=== PATIENT | female | born 2000 | race Caucasian/White ===

== ENCOUNTER 2023-03-05 13:27 | Outpatient (CLI) | payer OTHER, SELFPAY ==
--- NOTE | ~2023-03-05 | XR_ITS ---
EXAMINATION: XR hip RT min 2V DATE: 03/05/2023 13:52 INDICATION: Right hip pain. TECHNIQUE: 2 views of right hip were obtained. COMPARISON: None. FINDINGS: Bone alignment is normal. No fracture. There is decreased femoral head/neck offset, which m ay be seen with femoral acetabular impingement. Right hip joint space is normal. IMPRESSION: 1. No arthritis. Reviewed, dictated and finalized at location E. IMPRESSION: 1. No arthritis.
== END 2023-03-05 13:28 | disposition home or self-care (01) ==
LOC: CHSIMG 13:35
PROVIDERS: PCP Family Medicine; Visit Provider Family Medicine
DX: M25.551 Pain in right hip (principal)
CPT/HCPCS: 73502

== ENCOUNTER 2023-09-12 10:50 | Outpatient (CLI) | payer OTHER, SELFPAY ==
--- NOTE | ~2023-09-12 | XR_ITS ---
EXAMINATION: XR chest 2V 09/12/2023 11:01 INDICATION: Right-sided chest and rib pain PROCEDURE: 2 view chest COMPARISON: 09/25/2007 FINDINGS: The lungs are clear. The cardiomediastinal silhouette is within normal limits. There are no pleural effusions. There is no pneumothorax suspected. IMPRESSION: 1: NO ACUTE CARDIOPULMONARY DISEASE. Reviewed, dictated and finalized at location B.
== END 2023-09-12 10:51 | disposition home or self-care (01) ==
LOC: CHSIMG 10:51
PROVIDERS: PCP Family Medicine; Visit Provider Nurse Practitioner Family
DX: R07.81 Pleurodynia (principal)
CPT/HCPCS: 71046

== ENCOUNTER 2024-09-09 13:02 | Outpatient (CLI) | payer OTHER, SELFPAY ==
--- NOTE | ~2024-09-09 | XR_ITS ---
EXAMINATION: XR barium swallow DATE: 09/09/2024 14:16 INDICATION: Reflux symptoms and vomiting TECHNIQUE: The patient drank thick barium, gas-producing crystals, and thin barium. A total of 1215 f luoroscopic spot radiographs of the hypopharynx and esophagus were obtained. Fluoroscopy exposure ti me was 1.7 minutes. Total DAP was 3.105 Gycm^2. COMPARISON: None. FINDINGS: The pharynx is symmetric and without evidence of mass lesion or mucosal irregularity. The e sophagus is normal without mass or stricture. Esophageal motility is normal. There is no hiatal herni a. There was no gastroesophageal reflux with provocative maneuvers. IMPRESSION: 1. Normal barium swallow study. Reviewed, dictated and finalized at location A.
--- OUTSIDE RECORDS SUMMARY | 2024-09-09 14:13 | XMS_ITS | Clinical Summary ---
Author Organization [facility] Address [address] [place] [address] Care Team Providers Care Systems Mgr Name Role Phone Agnieszka Butler MD Primary Care Provider [phone] Source Comments [facility],non-owned Affiliates and Associated Physician Practices is amultiple site organization consisting of ambulatory clinics and hospital sitesin [place], [place] and [place]. This disclosure is being madepursuant to the Care Everywhere program and may not contain all information available regarding this patient. Last updated 18.[facility] Allergies No known active allergies Medications * Be aware that medications may not be up to date on this document. Alwaysverify current medications with the patient. omeprazole (PriLOSEC) 40 MG capsule TAKE 1 CAPSULE BY MOUTH EVERY DAY BEFORE A MEAL Active escitalopram (Lexapro) 20 MG tablet Take 1 (one) tablet by mouth once daily Active norgestimate-ethin yl estradiol (Lisbeth) 0.25-35 MG-MCG tabletIndications: Oral contraceptive use Take 1 (one) tablet by mouth once daily 3 packet 3 4 Active Active Problems Problem Noted Date Diagnosed Date Nausea and vomiting 04/11/2020 Abdominal pain, generalized 04/11/2020 Immunizations Immunization Administration Dates Next Due DTaP VACCINE IM (6wk-6yrs) 01/30/2011,,04/03/2004,12/31,2002,2002 HEP A VACCINE, ADULT 11/17/2018 HEP B VACCINE, ADULT 3 DOSE 07/14/2003, 3,2002 HEP B VACCINE, PED/ADOL 07/14/2003,2002, HIB Hep B 07/14/2003,2002,2002 HIB VACCINE 07/14/2003,2002,2002 HIB-HAEMOPHILUS INFLUENZAE B CONJUGATE VACCINE 2002 HIB-PRP-T 4 DOSE 07/14/2003,2002, 3 Human Papilloma Virus Nineva lent Vaccine 12/16/2016,12/12/2014 INFLUENZA VACCINE 05/23/2003,04/11/2003 MENINGOCOCAL MENINGITIS 12/17/2013 MENINGOCOCCAL ACWY (MCV4P) VAC IM 11/17/2018,05/2013 MMR 07/15/2006,07/14/2003 PNEUMOCOCCAL PCV7 CONJ, PEDS 04/03/2004, 2002,2002,09/30,2002 POLIO IPV 01/30/2011, 7,04/03/2004,07/14,2002,2002 TDAP (7yrs+) 12/17/2013 VARICELLA 07/15/2006,07/14/2003 Family History Medical History Relation Name Comments Depression Father Hypertension Father Polycystic Ovary Syndrome Mother Relation Name Status Comments Father Alive Mother Alive Social History Tobacco Use Types Packs/Day Years Used Date Smoking Tobacco: Never Smokeless Tobacco: Never Tobacco Cessation:Counseling Given: Not Answered Alcohol Use Standard Drinks/Week Comments No 0 (1 standard drink = 0.6 oz pur e alcohol) Comments No Sex and Gender Information Value Date Recorded Sex Assigned at Not on file 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 Gender Identity Not on file Sexual Orientation Not on file Last Filed Vital Signs Vital Sign Reading Time Taken Comments Blood Pressure 110/73 01/14/2024 10:03 AM CDT Pulse 75 01/14/2024 10:03 AM CDT Temperature 36.4 C (97.5 F) 03/17/2020 1:51 PM CDT Respiratory Rate 18 12/18/2019 10:44 PM CDT Oxygen Saturation 98% 03/17/2020 1:51 PM CDT Inhaled Oxygen Concentration - - Weight 59 kg (130 lb) 01/14/2024 10:03 AM CDT Height 170.2 cm (5' 7 ) 01/14/2024 10:03 AM CDT Body Mass Index 20.36 01/14/2024 10:03 AM CDT Plan of Treatment Upcoming Encounters Date Type Department Care Team (Late st Contact Info) Description 01/19/2025 10:00 AM CDT Office Visit [facility] [address] [address] Aubrie Nelson MD [address] [place] [address] Health Maintenance Due Date Last Done Comments HIV SCREENING 2017 MENINGOCOCCAL (Group B) VACCINE SHARED DECISION-MAKING (1 of 2 - Standard) 2018 HEPATITIS C SCREENING 07/06/2020 DTAP/TDAP/TD VACCINES (7 - Td or Tdap) 12/18/2023 12/17/2013, 01/30/2011, 07/15/2006, Additional history exists COVID-19 VACCINE ( season) 2024 12/05/2020, 11/14/2020 DEPRESSION SCREENING 05/19/2024 CHLAMYDIA/GONORRHEA SCREENING 01/13/2025 01/14/2024, 01/14/2024, 10/26/2019 INFLUENZA VACCINE (Season Ended) 2025 05/23/2003, 04/11/2003 PAP SMEAR 01/13/2027 01/14/2024, 01/14/2024 ZOSTER VACCINE (1 of 2) 2052 HEPATITIS B VACCINE Completed 07/14/2003, 07/14/2003, 07/14/2003, Additional history exists HIB VACCINE Completed 07/14/2003, 06/20, 07/14/2003, Additional history exists PNEUMOCOCCAL VACCINE Completed 04/03/2004, 2002, 2002, Additional history exists HPV VACCINE Completed 12/16/2016, 12/12/2014 MENINGOCOCCAL GROUPS A/C/Y/W VACCINE Aged Out 11/17/2018, 12/17/2013, 12/17/2013 No longer eligible based on patient's age to complete this topic Procedures Procedure Name Priority Date/Time Associated Diagnosis Comments PAP CERVICAL CANCER SCREEN CT/NG/TV APT Routine 01/14/2024 11:06 AM CDT Well woman exam with routine gynecological exam from Last 3 Months or Most Recently Relevant to Health Maintenance Results * PAP CERVICAL CANCER SCREEN CT/NG/TV APT (01/14/2024 11:06 AM CDT) Age Gdln ACOG Testing 21-29 [facility] INSURANCE BILL PART OF UTERINE CERVIX / Unknown 01/14/2024 11:06 AM CDT 01/14/2024 Narrative [facility] INSURANCE BILL - 01/20/2024 1:08 PM CDT Source.............Cervix No. of containers..01 ThinPrep Vial Resulting Agency Comment Lab Testing performed at: [address] [id number] Aubrie Nelson MD LAB - PATHOLOGY/CYTOLOGY [place] Final Result [facility] INSURANCE BILL [address] [place] [address] from Last 3 Months or Most Recently Relevant to Health Maintenance Insurance [facility] Care Teams Systems Mgr Relationship Specialty Start Date End Date Agnieszka Butler MD PCP - General Family Medicine 07/28/18
--- OUTSIDE RECORDS SUMMARY | 2024-09-09 14:13 | XMS_ITS | Data Portability ---
Author Organization [facility] [employer], Main Office Address [address] [place] [address] Care Team Providers Care Industrial Order Clerk Name Role Phone REJI HAMMER Primary Care Provider [phone] REJI HAMMER Referring Provider Assessment Encounter Date Assessment Date Assessment LastModified by Organization Details LastModified Time 04/28/2023 04/28/2023 HPI: 22-year-old female came in today for evaluation of her right leg pain. Patient's chief complaint is that she will get pain in the right leg which will cause the knee to buckle. She has not fallen but almost. When this happens she has pain in the proximal thigh. The symptoms have been going on for about 2 months. Patient states that she will go several days without having any symptoms but once it happens it seems to happen more so throughout the rest of the day. There is no definite activity or action that brings on the symptoms. She does not recall any injury or overuse issue when the symptoms started. Patient at this point is in formal physical therapy for overall strengthening of her lower extremities. 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 She is scheduled for genetic testing at [facility] in the next week . She was placed into therapy to help strengthen the muscles because of this. Patient had AP and frog view of the right hip taken at [facility]. I did review the films which showed no definite abnormalities. Patient does have a knee sleeve and does use it occasionally and seems help with her symptoms. She has been taking no anti-inflammatori es at this point. Physical exam: 22-year-old female alert pleasant. She is 5 ft 6 130 lb she walks very well. She has flexion of the right hip to 140 externally rotates to 50 internally rotates to 40 without discomfort. Negative Stinchfield maneuver. Negative straight leg rise. There is no tenderness over the greater trochanter palpation. She has normal abduction strength in lateral position. She has very hypermobile patella on the right. No effusion. There is no apprehension testing with lateral subluxation of the patella. There is no joint line tenderness medial or lateral. She hyperextends the knee approximately 7 and flexes to 150 . She has normal stability to varus valgus stress. Negative Ynes's. She has very underdeveloped distal quads in both of her legs. Impression: 22-year-old female who is having give way episodes due to I believe most likely anterior knee pain. I believe that when the leg gives way it causes her to tense up the quad to keep her from falling which is most likely causing her to have some symptoms in the proximal thigh. All of her x-rays look very normal. She does have some lateral tilt on sunrise view of both of her patella and this is best treated with formal physical therapy. I talked with the mother as well about this. She should continue with therapy as I think this will probably help with her symptoms. She can use the bracing depending on her symptoms. Also have her genetic testing does prove to be positive overall general strengthening and conditioning will be helpful as well. Patient as well as her mother were happy with this information. If her symptoms worsen or change we will be happy see her back otherwise see back as needed. [email or web address] Not available 04/28/2023 16:02:58 Plan of Treatment Reminders Order Date Submit Date Provider Last Modified By Organization Details Last Modified Time Details Appointments None recorded . Lab None recorded . Referral None recorded . Procedures None recorded . Surgeries None recorded . Imaging XR, knee 023 04/28/20 23 [email or web address] [facility] [place], [address], [place], [address], 3 14:03:42 XR, pelvis 023 04/28/20 23 [email or web address] [facility] [place], [address], [place], [address], 3 14:03:42 Medication Orders None recorded . Patient TargetsNo targets recorded. Patient InstructionsNo instructions recorded. Reason for Referral None Reported. Results Created Date Observation Date Name Description Value Unit Range Abnormal Flag Note LastModifiedBy Organization Detail LastModifiedTime 04/28/20 23 XR, pelvi s No observ ation record ed. [email or web address] [facility] [place] [address], [address], 04/28/2023 15:55:20 04/28/20 23 XR, knee No observ ation record ed. [email or web address] [facility] [place] [address], [address], 04/28/2023 15:55:56 Result Notes None recorded. 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 Procedures Surgical History None recorded. Imaging Results Imaging Date Name Status LastModified by Organiz ation Details LastModified Time 04/28/2023 XR, pelvis completed [facility] [place] [address], [address], 04/28/2023 15:55:20 04/28/2023 XR, knee completed [email or web address] [facility] [place] [address], [place], [address], 04/28/2023 15:55:56 Procedure Notes None recorded. Medical Equipment None Reported. Allergies No known drug allergies Medications Name Sig Start Date Stop Date Status Note LastModified by Organization Details LastModified Time omeprazole 40 mg capsule,jill yed release TAKE 1 CAPSULE BY MOUTH EVERY DAY BEFORE A MEAL active Not Available Not Available No t Available cephalexin 500 mg capsule TAKE 1 TABLET BY MOUTH EVERY 6 HOURS 04/28 completed Not Available Not Available Not Available escitalopram 10 mg tablet TAKE 1 TABLET BY MOUTH EVERY DAY 04/28 completed Not Available Not Available Not Available escitalopram 20 mg tablet TAKE 1 TABLET BY MOUTH EVERY DAY active Not Available Not Available No t Available Vitals Date Recorded Body height Body mass index (BMI) Body mass index (BMI) [Percentile] Per age and sex Body weight Provider Name and Address Organization Details Last Updated DateTime 04/28/2023 167.64 cm 21 kg/m2 40 % 17102.01 g JUDAH Greenfield [place] 04/28/2023 15:17:16 Social History Question Answer Notes LastModified by Organizat ion Details LastModified Time Tobacco Smoking Status Never Smoker JUDAH Greenfield mic, [employer] 04/28/2023 15:11:40 What Is Your Level Of Alcohol Consumption? None Information not available 04/28/2023 Sex: Unknown Functional Status None recorded. Mental Status None recorded. Family History Relationship Description Onset Age of this Age Resolved Age Notes LastModified by Organization Details LastModified Time Maternal Grandfather Heart disease Not available 2022 15:10:57 Maternal Grandmother Diabetes mellitus [email or web address] Not available 2022 15:11:33 Medical History No medical history recorded. Gynecological HistoryNo gynecological history recorded. Obstetrics History GPAL:G 0 P 0 0 0 0 Past Encounters Encounter ID Performer Location Encounter Start Date Encounter Closed Date Diagnosis/Indication Diagnosis SNOMED-CT Code Diagnosis ICD10 Code Diagnosis Note [id number] MIKHAIL [facility] [place] [address] [place] [address] 04/28/2023 14:48:14 04/28/2023 16:14:15 Pain in right hip joint 2818535701 25506 M25.551 Pain of ri ght knee joint 3583210978 03569 M25.561 Health Concerns Section Related Observation LastModified by Organization Detai ls LastModified Time None Recorded Concern Status LastModified by Organization Details LastModified Time None Recorded Advance Directives Directive None Recorded Payers Encounter Date Sequence Insurance Name Policy Number Policy Richardson Covered Member ID Richardson Member ID Guarantor Name 04/28/2023 1 [facility] [id number] Tal Zamorano [id number] Lydia Zamorano OBGyn Episode No OBEpisode recorded.
--- OUTSIDE RECORDS SUMMARY | 2024-09-09 14:13 | XMS_ITS | Encounter Summary ---
Author Organization [facility] Address [address] [place] [address] Care Team Providers Care Supervisor Doping Name Role Phone Tal Butler MD Primary Care Provider [phone] Tal Butler MD Unavailable [phone] Tal Butler MD Unavailable [phone] Encounter Details Date Type Department Care Team (Late Contact Info) Description 01/09/2019 Telephone [facility] [address] [facility] [place] [address] Jannette Galvan, RN Social History Tobacco Use Types Packs/Day Years Used Date Smoking Tobacco: Never Smokeless Tobacco: Never Alcohol Use Standard Drinks/Week Comments No 0 (1 standard drink = 0.6 oz pur e alcohol) Comments No Sex and Gender Information Value Date Recorded Sex Assigned at Not on file 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 Dad says pt. Is doing better. documented in this encounter Plan of Treatment Upcoming Encounters Date Type Department Care Team (Late Contact Info) Description 01/19/2025 10:00 AM CDT Office Visit [facility] [address] [place] [address] Aubrie Nelson MD [address] [place] [address] documented as of this encounter Visit Diagnoses Not on filedocumented in this encounter Care Teams Supervisor Doping Relationship Specialty Start Date End Date Tal Butler MD PCP - General Family Medicine 07/28/18 Tal Butler MD [address] [place] [address] PCP - Attributed-[facility] Commercial 09/16/18 11/14/20 Tal Butler MD [address] [place] [address] PCP - Attributed-[facility] Commercial 08/17/21 02/26/22 documented as of this encounter
== END 2024-09-09 13:03 | disposition home or self-care (01) ==
PROVIDERS: PCP Family Medicine; Visit Provider Family Medicine
DX: R14.2 Eructation (principal); R11.10 Vomiting, unspecified
CPT/HCPCS: 74220

== ENCOUNTER 2025-02-22 12:27 | Outpatient (CLI) | payer OTHER, SELFPAY ==
--- NOTE | ~2025-02-22 | XR_ITS ---
EXAMINATION: XR hand LT min 3V, 02/22/2025 12:49 CDT HISTORY: CRUSHING INJURY x2 MONTHS AGO;LT HAND PAIN INTO 1,4,5 DIGITS COMPARISON: No comparisons available. Findings: No acute fracture or malalignment. No significant degenerative changes. Soft tissues unremarkable. Impression: No acute fracture or malalignment. Reviewed, dictated and finalized at location P. Impression: No acute fracture or malalignment.
--- NOTE | ~2025-02-22 | XR_ITS ---
EXAMINATION: XR elbow LT 2V, 02/22/2025 12:49 CDT HISTORY: CRUSHING HAND INJURY x2 MONTHS AGO; SHOOTING PAIN INTO ELBOW COMPARISON: No comparisons available. Findings: No acute fracture or malalignment. No significant degenerative changes. Soft tissues unremarkable. Impression: No acute fracture or malalignment. Reviewed, dictated and finalized at location P. Impression: No acute fracture or malalignment.
--- OUTSIDE RECORDS SUMMARY | 2025-02-22 13:20 | XMS_ITS | Encounter Summary ---
Author Organization [facility] Address [address] [place] [address] Care Team Providers Care Jointer Submarine Cable Name Role Phone Mike Power MD Primary Care Provide r Encounter Details Date Type Department Care Team (Late st Contact Info) Description 02/21/2025 Results Follow-Up [facility] Cardiology [address] [place] [address] Rosa Lagunas, JACI [address] [address] RAVINDER ab ql w/rflx to RAVINDER qn, CRP (cardiac risk), Rheumatoid factor, Erythrocyte sedimentation rate Social History Tobacco Use Types Packs/Day Years Used Date Smoking Tobacco: Never Passive Smoke Exposure: Never Smokeless Tobacco: Never Alcohol Use Standard Drinks/Week Comments Never 0 (1 standard drink = 0.6 oz pur e alcohol) AUDIT-C Answer Date Recorded Q1: How often do you have a drink containing alcohol? Never 02/17/2025 Q2: How many drinks containi ng alcohol do you have on a typical day when you are drinking? Patient does not drink Q3: How often do you have si x or more drinks on one occasion? Never 02/17/2025 Personal Safety Answer Date Recorded Have you ever been in or are you currently in a harmful physical or emotional relationship or is someone making you feel afraid or unsafe? 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
--- OUTSIDE RECORDS SUMMARY | 2025-02-22 13:20 | XMS_ITS | Clinical Summary ---
Author Organization [facility] [employer] Address [address] [place] [address] Care Team Providers Care Pole Peeling Machine Operator Helper Name Role Phone Agnieszka Butler MD Primary Care Provider [phone] Source Comments [facility] [employer],non-owned Affiliates and Associated Physician Practices is amultiple site organization consisting of ambulatory clinics and hospital sitesin [place], [place], [place] and [place]. This disclosure is being madepursuant to the Care Everywhere program and may not contain all information available regarding this patient. Last updated 18.[facility] [employer] Allergies No known active allergies Medications * Be aware that medications may not be up to date on this document. Alwaysverify current medications with the patient. omeprazole (PriLOSEC) 40 MG capsule TAKE 1 CAPSULE BY MOUTH EVERY DAY BEFORE A MEAL Active norgestimate-ethin yl estradiol (Lisbeth) 0.25-35 MG-MCG tabletIndications: Oral contraceptive use TAKE 1 TABLET BY MOUTH EVERY DAY 84 tablet 5 Active ondansetron, disintegrating, (Zofran ODT) 4 MG tablet 5 Active escitalopram (Lexapro) 10 MG tablet Take 1 (one) tablet by mouth once daily 5 Active Active Problems Problem Noted Date Diagnosed Date Nausea and vomiting 04/11/2020 Abdominal pain, generalized 04/11/2020 Encounters Date Type Department Care Team Description 01/20/2025 Telephone [facility] [address] [phone] Aubrie Nelson MD Appointment 12/18/2024 Refill [facility] [address] [phone] Aubrie Nelson MD Refill Request from Last 3 Months Immunizations Immunization Administration Dates Next Due DTaP [...] on file 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 Gender Identity Not on file Sexual Orientation [...] 10:03 AM CDT Height 170.2 cm (5' 7) 01/14/2024 10:03 AM CDT Body Mass Index 20.36 01/14/2024 10:03 AM CDT Plan of Treatment Health Maintenance Due Date Last Done Comments HIV SCREENING 2017 MENINGOCOCCAL (Group B) VACCINE SHARED DECISION-MAKING (1 of 2 - Standard) 2018 HEPATITIS C SCREENING 07/06/2020 DTAP/TDAP/TD VACCINES (7 - Td or Tdap) 12/18/2023 12/17/2013, 01/30/2011, 07/15/2006, Additional history exists DEPRESSION SCREENING 05/19/2024 CHLAMYDIA/GONORRHEA SCREENING 01/13/2025 01/14/2024, 10/26/2019 COVID-19 VACCINE (3 - season) 2025 12/05/2020, 11/14/2020 INFLUENZA VACCINE (#1) 2025 05/23/2003, 2002 PAP SMEAR 01/13/2027 01/14/2024, 01/14/2024 ZOSTER VACCINE [...] AM CDT) Age Gdln ACOG Testing 21-29 [facility] INSURANCE BILL PART OF UTERINE CERVIX / Unknown 01/14/2024 11:06 AM CDT 01/14/2024 Narrative [facility] INSURANCE BILL - 01/20/2024 1:08 PM CDT Source.............Cervix No. of containers..01 ThinPrep Vial Resulting Agency Comment Lab Testing performed at: [address] [id number] Aubrie Nelson MD LAB - PATHOLOGY/CYTOLOGY [place] Final Result [facility] INSURANCE BILL [address] [place] [address] from Last 3 Months or Most Recently Relevant to Health Maintenance Insurance [facility] Care Teams Pole Peeling Machine Operator Helper Relationship Specialty Start Date End Date Agnieszka Butler MD PCP - General Family Medicine 07/28/18
--- OUTSIDE RECORDS SUMMARY | 2025-02-22 13:20 | XMS_ITS | Clinical Summary ---
Author Organization [facility] Address [address] [place] [address] Care Team Providers Care Outside Parts Salesman Name Role Phone Mike Power MD Primary Care Provide r Allergies No known active allergies Medications escitalopram (LEXAPRO) 20 mg tablet Take 1 tablet (20 mg total) by mouth daily 3 Active omeprazole (PriLOSEC) 20 mg capsule Take 1 capsule (20 mg total) by mouth daily before breakfast 1 Active predniSONE (DELTASONE) 10 mg tablet Patient has not started yet. 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 Anxiety 02/02/2025 Encounters Date Type Department Care Team Description 02/21/2025 Orders Only [place] [employer] Techn[facility] Video Operator at [facility] [address] [place] [address] Rosa Lagunas NP Arthralgia, unspecified joint (Primary Dx) 02/21/2025 Results Follow-Up [facility] Cardiology [address] [place] [address] Rosa Lagunas NP RAVINDER ab ql w/rflx to RAVINDER qn, CRP (cardiac risk), Rheumatoid factor, Erythrocyte sedimentation rate 02/17/2025 2:00 PM CDT - 02/17/2025 2:55 PM CDT Surgery [facility] Cardiac [facility] [address] [place] [address] Mitchell Colon MD TILT TABLE EVALUATION 02/17/2025 12:58 PM CDT - 02/17/2025 2:39 PM CDT Hospital Encounter [facility] [address] [place] [address] Mitchell Colon MD POTS (postural orthostatic tachycardia syndrome); Syncope and collapse; EDS (Matias-Danlos syndrome); Anxiety; Arthralgia, unspecified joint Discharge Disposition: Discharge to home or self care 02/11/2025 Telephone [place] [employer] Techn[employer] Video Operator at [address] [phone] Rosa Lagunas NP 02/02/2025 1:45 PM CDT Office Visit [place] [employer] Technician Video Operator at [address] [phone] Rosa Lagunas NP POTS (postural orthostatic tachycardia syndrome) (Primary Dx); EDS (Matias-Danlos syndrome); Anxiety; Arthralgia, unspecified joint; Chest pain, unspecified type; Palpitations; Syncope and collapse 02/02/2025 Telephone [facility] Cardiology [address] [phone] Mitchell Colon MD Scheduling Testing/Treatment (Tilt Table Test) 01/26/2025 12:00 PM CDT - 01/26/2025 11:59 PM CDT Hospital Encounter [facility] [address] [place] [phone] Pain in left elbow; Pain in left wrist Discharge Disposition: Discharge to home or self care from Last 3 Months Medical History Medical History Date Comments Anxiety Major depression Panic disorder Autism spectrum disorder Hypermobile joints Acid reflux Social History Tobacco Use Types Packs/Day Years Used Date Smoking Tobacco: Never Passive Smoke Exposure: Never Smokeless Tobacco: Never Tobacco Cessation:Counseling Given: Not Answered Alcohol Use Standard Drinks/Week Comments Never 0 [...] on file 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 Gender Identity Not on file Sexual Orientation Not on file Obstetrics History Last Filed Vital Signs Vital Sign Reading Time Taken Comments Blood Pressure 116/95 02/17/2025 2:30 PM CDT Pulse 49 02/17/2025 2:30 PM CDT Temperature - - Respiratory Rate 12 02/17/2025 2:30 PM CDT Oxygen Saturation 100% 02/17/2025 2:30 PM CDT Inhaled Oxygen Concentration - - Weight 57 kg (125 lb 9.6 oz) 02/17/2025 1:12 PM CDT Height 167.6 cm (5' 6) 02/02/2025 1:56 PM CDT Body Mass Index 20.27 02/02/2025 1:56 PM CDT Plan of Treatment Health Maintenance Due Date Last Done Comments Cervical Cancer Screening 2002 Depression Screening 2002 Hepatitis C Screening 2002 Meningococcal B Vaccine (1 o f 2 - Standard) 2018 Regular Well Visit/Exam 18-64 2020 DTaP/Tdap/Td Vaccine (7 - Td or Tdap) 12/18/2023 12/17/2013, 01/30/2011, 07/15/2006, Additional history exists Influenza Vaccine (#1) 2025 05/23/2003, 2002 Hepatitis B Screening Completed 07/14/2003 , 07/14/2003, 2002, Additional history exists Pneumococcal vaccine <65 Completed 004, 2002, 2002, Additional history exists Varicella Vaccines Completed 07/15/2006, 07/14/2003 HPV Vaccines Completed 12/16/2016, 12/12/2014 Procedures Procedure Name Priority Date/Time Associated Diagnosis Comments TILT TABLE EVALUATION Routine 02/17/2025 2:14 PM CDT POTS (postural orthostatic tachycardia syndrome) Syncope and collapse EDS (Matias-Danlos syndrome) Anxiety BASIC METABOLIC PANEL Routine 02/17/2025 1:33 PM CDT Arthralgia, unspecified joint EGFR Routine 02/17/2025 1:33 PM CDT ERYTHROCYTE SEDIMENTATION RATE Routine 02/17/2025 1:33 PM CDT POTS (postural orthostatic tachycardia syndrome) Syncope and collapse EDS (Matias-Danlos syndrome) Anxiety DIFFERENTIAL AUTO Routine 02/17/2025 1:3 3 PM CDT POTS (postural orthostatic tachycardia syndrome) Syncope and collapse EDS (Matias-Danlos syndrome) Anxiety RHEUMATOID FACTOR Routine 02/17/2025 1:3 3 PM CDT Arthralgia, unspecified joint CRP, HIGH SENSITIVITY Routine 02/17/2025 1:33 PM CDT Arthralgia, unspecified joint RAVINDER QUALITATIVE WITH REFLEX TO RAVINDER QUANTITATIVE Routine 02/17/2025 1:33 PM CDT Arthralgia, unspecified joint CBC WITH AUTO DIFFERENTIAL Routine 02/17/2025 1:33 PM CDT POTS (postural orthostatic tachycardia syndrome) Syncope and collapse EDS (Matias-Danlos syndrome) Anxiety POCT HCG, URINE Routine 02/17/2025 1:17 PM CDT XR WRIST LEFT 3 OR MORE VIEWS Schedule Routine, Read Routine (OP Routine) 01/26/2025 12:19 PM CDT Pain in left wrist XR ELBOW LEFT 3 OR MORE VIEWS Schedule Routine, Read Routine (OP Routine) 01/26/2025 12:19 PM CDT Pain in left elbow from Last 3 Months Results * TILT TABLE EVALUATION (02/17/2025 2:14 PM CDT) Anatomical Region Laterality Modality X-Ray Angiograph y Narrative 02/21/2025 1:30 PM CDT PROCEDURE TILT TABLE TEST PROCEDURE DETAILS The risks, benefits and alternatives of the procedure were explained to the patient. All of her questions were answered, and she understood and signed informed consent. The patient was brought in the fasting nonsedated state. She was tilted to 90 degrees under continuous blood pressure, heart rate, electrocardiogram and pulse oximeter monitoring. Baseline blood pressure was 114/77 and heart rate was 58. Immediately after tilt, the blood pressure was 112/77, and heart rate was 68. During the next 20 minutes, Blood pressure dropped to a minimum of 101 , and hear rate was 80 at which time the patient was symptomatic with nausea and flushing. The patient tolerated the procedure well, and there were no complications. CONCLUSION: Normal physiologic response. PLAN: My recommendation would be to increase fluid intake and use support elastic stockings. Other nonpharmacologic measures were discussed. Mitchell Colon MD CV ELECTROPHYSIOLOGY PROCS Final Result * RAVINDER ab ql w/rflx to RAVINDER qn (02/17/2025 1:33 PM CDT) RAVINDER Negative Comment: Interpretive Data Normal range for RAVINDER Qualitative Antibody = Negative. 1. RAVINDER is performed using indirect immunofluorescence against HEp-2 cells 2. RAVINDER titers are performed on all positive qualitative results. 3. A significantly positive RAVINDER result is defined as a positive nuclear fluorescence at a titer of 1:80 or greater. 4. 15% of normal people above age 65 have significantly positive RAVINDER results. 5% or less of normal people age 65 or under have significantly positive RAVINDER results. Current interpretive data was last revised on 2020. Testing performed by: [facility], [address], [place]., [address] Blood 02/17/2025 1:33 PM CDT 02/17/2025 3:42 PM CDT Rosa Lagunas NP LAB BLOOD ORDERABLES Fi nal Result Performing Organization Address [facility] Co de Phone Number [facility] [address] [place] [address] * eGFR (02/17/2025 1:33 PM CDT) [facility] eGFR >90 >=60 mL/min/1. 73 m2 Comment: Interpretive Data Reference Interval Normal >/= 90 mL/min/1.73m2 Mildly decreased* 60 - 89 mL/min/1.73m2 Mildly to moderately decreased 45 - 59 mL/min/1.73m2 Moderately to severely decreased 30 - 44 mL/min/1.73m2 Severely decreased 15 - 29 mL/min/1.73m2 Kidney Failure < 15 mL/min/1.73m2 *Relative to young adult level Estimated glomerular filtration rate is determined by the 2020 CKD-EPI equation recommended by the National Kidney Foundation (A Unifying Approach to GFR Estimation: Recommendations of the NKF-ASK Task Force on Reassessing the Inclusion of Race in Diagnosing Kidney Disease, JASN 2020). The CKD-EPI equation should not be used for patients with unstable renal function and has not been validated in children and those over 70. Current interpretive data was last reviewed 2021. Blood 02/17/2025 1:33 PM CDT 02/17/2025 1:38 PM CDT us Mitchell Colon MD LAB BLOOD ORDERABLES Final Result Performing Organization Address City/[facility]/ZIP Co de Phone Number [facility] [address] [place] [employer] [address] * Differential, auto (02/17/2025 1:33 PM CDT) [facility] Neutrophil abs 4.03 1.50 - 6.50 K/cumm Imm gran abs 0.02 0.00 - 0.10 K/cumm [facility] Lymphocyte abs 3.07 0.80 - 3.30 K/cumm [facility] Monocyte abs 0.45 0.20 - 0.80 K/cumm [facility] Eosinophil abs 0.09 0.00 - 0.50 K/cumm [facility] Basophil abs 0.05 0.00 - 0.10 K/cumm [facility] Neutrophil pct 52.3 % [facility] Comment: Interpretive Data Percent cell count reference ranges are not reported, since discordance with absolute values may lead to misinterpretation of CBC data. Current Interpretive Data was last revised on 2017. Imm gran pct 0.3 % [facility] Comment: Interpretive Data Percent cell count reference ranges are not reported, since discordance with absolute values may lead to misinterpretation of CBC data. Current Interpretive Data was last revised on 2017. Lymphocyte pct 39.8 % [facility] Comment: Interpretive Data Percent cell count reference ranges are not reported, since discordance with absolute values may lead to misinterpretation of CBC data. Current Interpretive Data was last revised on 2017. Monocyte pct 5.8 % [facility] Comment: Interpretive Data Percent cell count reference ranges are not reported, since discordance with absolute values may lead to misinterpretation of CBC data. Current Interpretive Data was last revised on 2017. Eosinophil pct 1.2 % [facility] Comment: Interpretive Data Percent cell count reference ranges are not reported, since discordance with absolute values may lead to misinterpretation of CBC data. Current Interpretive Data was last revised on 2017. Basophil pct 0.6 % [facility] Comment: Interpretive Data Percent cell count reference ranges are not reported, since discordance with absolute values may lead to misinterpretation of CBC data. Current Interpretive Data was last revised on 2017. Blood 02/17/2025 1:33 PM CDT 02/17/2025 1:37 PM CDT us Mitchell Colon MD LAB BLOOD ORDERABLES Final Result [facility] [address] [place] [address] * CBC with auto differential (02/17/2025 1:33 PM CDT) Pathologist [facility] WBC 7.71 3.80 - 9.90 K/cumm Hgb 13.6 11.9 - 15.5 g/dL [facility] Hct 40.7 35.6 - 45.5 % [facility] Plt 254 150 - 400 K/cumm [facility] MPV 10.0 9.1 - 12.3 fL [facility] RBC 4.30 3.90 - 5.20 M/cumm [facility] MCV 94.7 81.3 - 96.4 fL [facility] MCH 31.6 27.1 - 33.3 pg [facility] MCHC 33.4 32.3 - 35.7 g/dL [facility] RDW CV 12.9 11.1 - 14.9 % [facility] RDW SD 44.4 35.7 - 48.1 fL [facility] NRBC abs 0.00 0.00 - 0.01 K/cumm [facility] Blood 02/17/2025 1:33 PM CDT 02/17/2025 1:37 PM CDT Narrative [facility] - 02/17/2025 1:47 PM CDT If most recent labs were drawn prior to 4 AM, draw only prior to initiating procedure. Mitchell Colon MD LAB BLOOD ORDERABLES Final Result Performing Organization Address [facility] Co de Phone Number [address] [employer] [place] [address] * Erythrocyte sedimentation rate (02/17/2025 1:33 PM CDT) [facility] Erythrocyte sedimentation rate 4 1 - 20 mm/hr Blood 02/17/2025 1:33 PM CDT 02/17/2025 1:37 PM CDT Rosa Lagunas NP LAB BLOOD ORDERABLES Fi nal Result Performing Organization Address City/[facility]/ZIP Co de Phone Number [address] [employer] [place], [place] [phone] * Rheumatoid factor (02/17/2025 1:33 PM CDT) [facility] Rheumatoid factor, quant <10.0 <=15.0 IUnits/mL Blood 02/17/2025 1:33 PM CDT 02/17/2025 1:38 PM CDT Rosa Lagunas RESIDENTIAL COORDINATOR LAB BLOOD ORDERABLES nal Result Performing Organization Address [facility] de Phone Number [address] [place] [address] * CRP (cardiac risk) (02/17/2025 1:33 PM CDT) [facility] hsCRP <0.20 mg/L Comment: Interpretive data Adult only - values greater than or equal to 10 mg/L are consistent with infection or inflammation. Individuals with evidence of active infection, systemic inflammatory processes, or trauma should not be tested until these conditions have abated. When using HS CRP to assess cardiovascular risk, two measurements should be taken, two weeks apart (averaging results). The CDC/AHA recommended the following HS CRP cut off points (tertiles) for CVD assessment. Adult low risk <1.0 mg/L Average risk 1.0 - 3.0 mg/L High Risk >3.0 mg/L Current interpretive data was last revised on 2018. Blood 02/17/2025 1:33 PM CDT 02/17/2025 1:38 PM CDT Rosa Lagunas RESIDENTIAL COORDINATOR LAB BLOOD ORDERABLES Fi nal Result Performing Organization Address [facility] Co de Phone Number [place] [place] [address] * Basic metabolic panel (02/17/2025 1:33 PM CDT) [facility] Sodium 136 135 - 145 mmol/L Potassium, pl 3.5 3.3 - 4.9 mmol/L [facility] Chloride 101 97 - 110 mmol/L [facility] CO2 24 22 - 32 mmol/L [facility] Anion gap 11 2 - 15 mmol/L [facility] BUN 13 6 - 25 mg/dL [facility] Creatinine 0.71 0.60 - 1.10 mg/dL [facility] Glucose 89 70 - 199 mg/dL [facility] Comment: Interpretive Data Fasting glucose >/= 126 mg/dl is diagnostic for diabetes. Fasting is defined as no caloric intake for at least 8 hours. Fasting glucose between 100 mg/dl to 125 mg/dl is diagnostic of prediabetes. In a patient with classic symptoms of hyperglycemia or hyperglycemic crisis, a random glucose >/= 200 mg/dl is diagnostic for diabetes. In the absence of unequivocal hyperglycemia, results should be confirmed by repeat testing. The classification and Diagnosis of Diabetes Diabetes Care 2021; 46: S19-S40. Current interpretive data was last revised 2022. Calcium 9.2 8.5 - 10.3 mg/dL [facility] Blood 02/17/2025 1:33 PM CDT 02/17/2025 1:38 PM CDT Mitchell Colon MD LAB BLOOD ORDERABLES Final Result [facility] [address] Department [place] [address] * POCT hCG, urine (02/17/2025 1:17 PM CDT) HCG, ur, POC Negative Negative Lot Number [id number] QC Backgroud Clear Acceptable QC Control Line Acceptable Urine 02/17/2025 1:17 PM CDT Mitchell Colon MD POINT OF CARE TEST ORDERABL ES Final Result * XR Wrist Left 3 or More Views (01/26/2025 12:19 PM CDT) Anatomical Region Laterality Modality Upper Extremities, Wrist Left Compute d Radiography 01/27/2025 8:32 PM CDT Narrative 01/27/2025 8:34 PM CDT EXAM DESCRIPTION: 1. XR ELBOW LEFT 3 OR MORE VIEWS; 2. XR WRIST LEFT 3 OR MORE VIEWS REASON FOR STUDY: Pain in left elbow pain in left wrist Pain to left wrist since January 11 Smashed arm between two carts at work No surgery FINDINGS: Three views left elbow and three views left wrist submitted without comparison. Left elbow: No acute fracture. Alignment is normal. The joint spaces are normal. No effusion. Left wrist: No acute fracture. Ulnar positive variance is present. The joint spaces are normal. No dorsal wrist soft tissue swelling. IMPRESSION: 1. No acute fracture. 2. Left ulnar positive variance. THIS IS AN ELECTRONICALLY VERIFIED FINAL REPORT 01/27/2025 8:34 PM - Electronically signed by Yury Davies M.D. MF: [email or web address] Report ID: [id number] Reading Location: [id number] Procedure Note Yury Davies MD - 01/27/2025 EXAM DESCRIPTION: 1. XR ELBOW LEFT 3 OR MORE VIEWS; 2. XR WRIST LEFT 3 OR MORE VIEWS REASON FOR STUDY: Pain in left elbow pain in left wrist Pain to left wrist since January 11 Smashed arm between two carts atwork No surgery FINDINGS: Three views left elbow and three views left wrist submitted withoutcomparison. Left elbow: No acute fracture. Alignment is normal. The joint spaces are normal. No effusion. Left wrist: No acute fracture. Ulnar positive variance is present. The joint spacesare normal. No dorsal wrist soft tissue swelling. IMPRESSION: 1. No acute fracture. 2. Left ulnar positive variance. THIS IS AN ELECTRONICALLY VERIFIED FINAL REPORT 01/27/2025 8:34 PM - Electronically signed by Yury Davies M.D. MF: [email or web address] Report ID: [id number] Reading Location: [id number] Mike Power MD IMG XR PROCEDURES Fin al Result * XR Elbow Left 3 or More Views (01/26/2025 12:19 PM CDT) Anatomical Region Laterality Modality Upper Extremities, Elbow Left Compute d Radiography 01/27/2025 8:32 PM CDT Narrative 01/27/2025 8:34 PM CDT EXAM DESCRIPTION: 1. XR ELBOW LEFT 3 OR MORE VIEWS; 2. XR WRIST LEFT 3 OR MORE VIEWS REASON FOR STUDY: Pain in left elbow pain in left wrist Pain to left wrist since January 11 Smashed arm between two carts at work No surgery FINDINGS: Three views left elbow and three views left wrist submitted without comparison. Left elbow: No acute fracture. Alignment is normal. The joint spaces are normal. No effusion. Left wrist: No acute fracture. Ulnar positive variance is present. The joint spaces are normal. No dorsal wrist soft tissue swelling. IMPRESSION: 1. No acute fracture. 2. Left ulnar positive variance. THIS IS AN ELECTRONICALLY VERIFIED FINAL REPORT 01/27/2025 8:34 PM - Electronically signed by Yury Davies M.D. MF: SAMI Report ID: [id number] Reading Location: [place] [address] Procedure Note Yury Davies MD - 01/27/2025 EXAM DESCRIPTION: 1. XR ELBOW LEFT 3 OR MORE VIEWS; 2. XR WRIST LEFT 3 OR MORE VIEWS REASON FOR STUDY: Pain in left elbow pain in left wrist Pain to left wrist since January 11 Smashed arm between two carts atwork No surgery FINDINGS: Three views left elbow and three views left wrist submitted withoutcomparison. Left elbow: No acute fracture. Alignment is normal. The joint spaces are normal. No effusion. Left wrist: No acute fracture. Ulnar positive variance is present. The joint spacesare normal. No dorsal wrist soft tissue swelling. IMPRESSION: 1. No acute fracture. 2. Left ulnar positive variance. THIS IS AN ELECTRONICALLY VERIFIED FINAL REPORT 01/27/2025 8:34 PM - Electronically signed by Yury Davies M.D. MF: SAMI Report ID: [id number] Reading Location: [id number] Mike Power MD IMG XR PROCEDURES Fin al Result from Last 3 Months Insurance [facility] H[facility]/PPO Address: [address] [address] [place] [address] [facility] [employer] [place] [address] Care Teams Outside Parts Salesman Relationship Specialty Start Date End Date Mike Power MD [address] [place] [address] PCP - General Family Medicine 03/06/23
--- OUTSIDE RECORDS SUMMARY | 2025-02-22 13:20 | XMS_ITS | Clinical Summary ---
Author Organization [facility] Address [address] [place] [place] [address] Care Team Providers Care Manager Pharmaceutical Name Role Phone Brent Robbins MD Primary Care Provider Allergies No known active allergies Medications norgestimate-eth inyl estradioL (Lisbeth) 0.25 mg-35 mcg tabletIndication s:Acne, unspecified acne type,Dysmenorrhe a in adolescent Take 1 Tablet by mouth daily. 84 Tablet 2 10/22/2021 Active Active Problems No known active problems Resolved Problems Problem Noted Date Diagnosed Date Resolved Date Unspecified otitis media 04/24/2011 Acute upper respiratory infe ctions of unspecified site 04/24/2011 07/06/2021 Urinary frequency 03/05/2011 04/24/2011 Well child check 01/30/2011 03/05/2011 Need for DTaP vaccine 01/30/20112010 Need for prophylactic vaccin ation and inoculation against poliomyelitis 01/30/20112010 [place] 01/18/2011 01/30/2011 Molluscum contagiosum 01/18/20112010 Immunizations Immunization Administration Dates Next Due (INFANRIX)(6 WKS-6 YRS) DIPT HERIA, TETANUS TOXOIDS, AND ACCELLULAR PERTUSSIS VACCINE (DTAP), 0.5 ML IM 07/15/2006,2002,2002,2002 (IPOL)(6 WKS AND UP) POLIOVI GRZEGORZ VACCINE, INACTIVATED (IPV), 3 DOSE, SUBCUT OR IM 07/14/2003,2002,2002 (M-M-R II/PRIORIX)(12 MO UP) MEASLES, MUMPS AND RUBELLA VIRUS VACCINE, 0.5 ML IM/SUBCUT 07/15/2006,07/14/2003 (VARIVAX)(12 MOS UP)VARICELL A VIRUS VACCINE (PF) 0.5 ML, SUB CUT 07/15/2006,07/14/2003 DTaP Vaccine < 7 YO IM VFC 01/30/2011 HIB, Unspecified Formulation 07/14/2003,11/06/19 03,2002 Hepatitis B Vaccine 07/14/2003,2002,2002 Pneumococcal 7-valent conjug ate vaccine IM 2002,2002,2002 Poliovirus IPV VFC 01/30/2011 Social History Tobacco Use Types Packs/Day Years Used Date Smoking Tobacco: Never Smokeless Tobacco: Never Alcohol Use Standard Drinks/Week Comments Never 0 (1 standard drink = 0.6 oz pur e alcohol) Comments Unknown Sex and Gender Information Value Date Recorded Sex Assigned at Not on file 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 Gender Identity Not on file Sexual Orientation Not on file Last Filed Vital Signs Vital Sign Reading Time Taken Comments Blood Pressure 126/66 07/06/2021 11:27 AM COMMERCIAL SALES SPECIALIST Pulse 88 04/24/2011 10:09 AM COMMERCIAL SALES SPECIALIST Temperature 36.2 C (97.1 F) 07/06/2021 11:27 AM COMMERCIAL SALES SPECIALIST Respiratory Rate 20 04/24/2011 10:09 AM COMMERCIAL SALES SPECIALIST Oxygen Saturation - - Inhaled Oxygen Concentration - - Weight 58.5 kg (129 lb) 07/06/2021 11:27 AM COMMERCIAL SALES SPECIALIST Height 170.2 cm (5' 7) 07/06/2021 11:27 AM COMMERCIAL SALES SPECIALIST Body Mass Index 20.2 07/06/2021 11:27 AM COMMERCIAL SALES SPECIALIST Plan of Treatment Health Maintenance Due Date Last Done Comments CHLAMYDIA SCREENING (ANNUAL) 11-24 YEARS 2013 CERVICAL CANCER SCREENING 2023 HPV/Cotest (21-29) 2023 PAP SMEAR 2023 DTAP/TDAP/TD VACCINES (7 - T d or Tdap) 12/18/2023 12/17/2013, 01/30/2011, 07/15/2006, Additional history exists Preventative Visit- Commercial 05/19/2024 07/28/2018 , 01/30/2011 INFLUENZA VACCINE (#1) 2024 HEPATITIS B VACCINES Completed 07/14/2003, 07/14/2003, 2002, Additional history exists HPV VACCINES Completed 12/16/2016, 12/12/2014 Insurance [facility] [employer] PPO [id number] Care Teams Manager Pharmaceutical Relationship Specialty Start Date End Date Brent Robbins MD PCP - General Family Practice 07/06/21
--- OUTSIDE RECORDS SUMMARY | 2025-02-22 13:20 | XMS_ITS | Encounter Summary ---
Author Organization [facility] Health Address [address] [place] [address] Care Team Providers Care Fireboat Operator Name Role Phone Tal Butler MD Primary Care Provider [phone] aTl Butler MD Unavailable [phone] Tal Butler MD Unavailable [phone] Encounter Details Date Type Department Care Team (Late st Contact Info) Description 01/09/2019 Telephone [facility] Health Urgent Care [address] [place] [id number] Jannette Galvan, RN Social History Tobacco Use Types Packs/Day Years Used Date Smoking Tobacco: Never Smokeless Tobacco: Never Alcohol Use Standard Drinks/Week Comments No 0 (1 standard drink = 0.6 oz pur e alcohol) Comments No Sex and Gender Information Value Date Recorded Sex Assigned at Not on file 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 Dad says pt. Is doing better. documented in this encounter Plan of Treatment Not on file documented as of this encounter Visit Diagnoses Not on filedocumented in this encounter Care Teams Fireboat Operator Relationship Specialty Start Date End Date Tal Butler MD PCP - General Family Medicine 07/28/18 Tal Butler MD [address] [place] [address] PCP - Attributed-[facility] Commercial 09/16/18 11/14/20 Tal Butler MD [address] [place] [address] PCP - Attributed-[facility] Commercial 08/17/21 02/26/22 documented as of this encounter
--- OUTSIDE RECORDS SUMMARY | 2025-02-22 13:20 | XMS_ITS | Encounter Summary ---
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 Name Role Phone Mike Power MD Primary Care Provide r Reason for Referral * Consultation (Routine) - Pending Review Specialty Diagnoses / Procedures Referred By Stephanie krishnamurthy Referred To Contact Rheumatology Diagnoses Arthralgia, unspecified joint Rosa Lagunas NP [address] [place] [address] Phone: tel: fax: [facility] Rheumatology at [facility] [address] [address] Phone: tel: fax: Referral ID Status Reason Start Date Expiration Date Visits Requested Visits Authorized [id number] Pending Review Specialty Services Required 02/21/2025 03/23/2026 1 1 Question Answer Please select the performing region: [facility] [[id number]] Please select the performing department: [facility] [[id number]] # of visits: 1 Encounter Details Date Type Department Care Team (Late st Contact Info) Description 02/21/2025 Orders Only [facility] at [address] [place] [address] Rosa Lagunas NP [address] [place] [address] [address] [place] [address] Arthralgia, unspecified joint (Primary Dx) Social History Tobacco Use Types Packs/Day Years [...] on file 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 Gender Identity Not on file Sexual Orientation Not on file documented as of this encounter Plan of Treatment Scheduled Referrals Name Type Priority Associated Diagnoses Orde r Schedule Ambulatory referral to Rheumatology Outpatient Referral Routine Arthralgia, unspecified joint Expected: 04/23/2025 (Approximate), Expires: 02/21/2026 documented as of this encounter Visit Diagnoses Diagnosis Arthralgia, unspecified joint- Primary documented in this encounter Care Teams Motor Coach Tour Operator Relationship Specialty Start Date End Date Mike Power MD [address] [place] [address] PCP - General Family Medicine 03/06/23 documented as of this encounter
== END 2025-02-22 12:28 | disposition home or self-care (01) ==
PROVIDERS: PCP Family Medicine; Visit Provider Plastic Surgery
DX: G56.02 Carpal tunnel syndrome, left upper limb (principal); G56.22 Lesion of ulnar nerve, left upper limb
CPT/HCPCS: 73070; 73130